=== PATIENT | female | born 1980 | race Caucasian/White ===

== ENCOUNTER 2022-11-21 19:00 | Emergency (ER) | payer BC ==
[~2022-11-21] VITALS: Ht 175.3 cm; Wt 63.5 kg
[2022-11-21] MEDS ORDERED: NAPROSYN500 MG PO (21:12)
[2022-11-21 21:40] VITALS: O2SAT 97
== END 2022-11-21 22:00 | disposition home or self-care (01) ==
LOC: FSED 19:28
DX: M79.661 Pain in right lower leg (principal); S86.091A Other specified injury of right Achilles tendon, initial encounter; W50.0XXA Accidental hit or strike by another person, initial encounter; Y93.68 Activity, volleyball (beach) (court); Y92.318 Other athletic court as the place of occurrence of the external cause
CPT/HCPCS: 99283